=== PATIENT | male | born 1965 | race Two or more races ===

== ENCOUNTER 2021-05-05 19:26 | Emergency (ER) | payer SELFPAY ==
[~2021-05-05] VITALS: Ht 167.6 cm; Wt 80.9 kg
--- NOTE | 2021-05-06 02:56 | PHYS DOC ---
Past Medical History Past Surgical History: No Surgical History (DELL DODSON DO) General Adult EDM: Chief Complaint: COUGH HPI: HPI: 56-year-old male who denies any significant past medical history presents the ED with complaints of fever, cough, sore throat and left-sided abdominal pain. Reports he has been vaccinated for Covid. (DELL DODSON DO) Review of Systems: Review of Systems: Constitutional: Denies confusion or chills. [] Eyes: Denies change in visual acuity. [] HENT: Denies nasal congestion or drooling/speech changes Respiratory: Denies hemoptysis or shortness of breath. [] Cardiovascular: Denies chest pain or edema. [] GI: Denies nausea, vomiting, bloody stools or diarrhea. [] : Denies dysuria or hematuria Musculoskeletal: Denies back pain or joint pain. [] Integument: Denies rash or diaphoresis Neurologic: Denies headache, focal weakness or sensory changes. [] Endocrine: Denies polyuria or polydipsia. [] Lymphatic: Denies swollen glands. [] Psychiatric: Denies depression or anxiety. [] (DELL DODSON DO) Heart Score: C/O Chest Pain: No Risk Factors: Risk Factors: DM, Current or recent (<one month) smoker, HTN, HLP, family history of CAD, obesity. Risk Scores: Score 0 - 3: 2.5% MACE over next 6 weeks - Discharge Home Score 4 - 6: 20.3% MACE over next 6 weeks - Admit for Clinical Observation Score 7 - 10: 72.7% MACE over next 6 weeks - Early Invasive Strategies (DELL DODSON DO) Physical Exam: PE: Constitutional: well nourished, febrile appearing HENT: Normocephalic, atraumatic, no oropharyngeal edema, moist mucous membranes Eyes: EOMI, conjunctiva normal, no discharge. Neck: Normal range of motion, supple, Cardiovascular: S1/2 present, tachycardic initially on arrival Lungs & Thorax: Speaking in full sentences, bilateral equal chest rise, no tachypnea or increased work of breathing Abdomen: soft, cannot reproduce any abdominal tenderness but reports LUQ and left midaxillary/midthoracic pain Skin: Warm, dry, no erythema, no rash. [] Back: No tenderness, no CVA tenderness. [] Extremities: No tenderness, no cyanosis, Neurologic: Alert and oriented X 3, normal motor function, normal sensory function, no focal deficits noted. [] Psychologic: Affect normal, judgement normal, mood normal. [] (DELL DODSON DO) PE: Constitutional: Well developed, well nourished, no acute distress, non-toxic appearance HENT: Normocephalic, atraumatic Eyes: Conjunctiva normal, no discharge Neck: Normal range of motion, supple Lungs & Thorax: No respiratory distress, equal chest rise and fall Abdomen: Soft, no tenderness, no guarding/rebound tenderness/distention Skin: Warm, dry, no erythema, no rash Extremities: No tenderness, ROM intact, no edema Neurologic: Alert and oriented X 3, no focal deficits noted Psychologic: Affect normal, judgment normal (HILLARY YUSUF DO) Current Patient Data: Vital Signs: Vital Signs Date Time Temp Pulse Resp B/P (MAP) Pulse Ox O2 Delivery O2 Flow Rate FiO2 05/06/21 02:05 100.9 83 111/75 (87) 98 Room Air 100.9 (DELL DODSON DO) EKG: EKG: [] (DELL DODSON DO) Radiology/Procedures: Radiology/Procedures: IMAGING REPORT Signed PATIENT: JUDY OCHOA ACCOUNT: [id number] : 1965 LOCATION: ER AGE: 56 SEX: M EXAM STATUS: REG ER ORD. PHYSICIAN: DELL DODSON DO REASON: cough/fever PROCEDURE: CHEST AP ONLY Study: XR CHEST 1V Indication: Cough/fever. Comparison: None. Findings: Mild asymmetric elevation of the right hemidiaphragm. Normal size of the cardiomediastinal silhouette. Unremarkable trino. Increased lung markings and suspected mild infiltrates in addition to atelectasis. There appears be a rounded density projecting over and just below the right second rib. Impression: Possible mild infiltrates which could represent early pneumonia in the appropriate clinical setting. Note is also made of an apparent rounded density projecting over and just below the right second rib (see seth image). Short-term follow-up is indicated to confirm resolution. If this persists CT of the chest would then be needed. Electronically signed by: SERGIO DRAKE MD (05/06/2021 5:32 AM) [facility] DICTATED and SIGNED BY: SERGIO DRAKE MD DATE: 05/06/21 [id number] (DELL DODSON DO) Course & Med Decision Making: Course & Med Decision Making Pertinent Labs and Imaging studies reviewed. (See chart for details) COVID-19 CRITERIA: The patient was evaluated during the global COVID-19 pandemic, and that diagnosis was suspected/considered upon their initial presentation. Their evaluation, treatment and testing was consistent with curre nt guidelines for patients who present with complaints or symptoms that may be related to COVID-19. Concern for atypical pneumonia in the setting of fever and tachycardia. Labs, covid swab and rapid strep pending. Due to shift change patient was signed out to Dr. Yusuf for further evaluation. (DELL DODSON DO) Course & Med Decision Making 0600- Sign out received from Dr. Dodson for patient with concern for possible COVID pneumonia as seen on CXR. Azithromycin previously provided. Labs pending at time of sign out. Labs reviewed. COVID positive. Patient unvaccinated. Patient given symptomatic steroid. Patient also c/o epigastric burning concerning for gastritis. Abdomen nonperitoneal. Pepcid provided. Patient stable for discharge with outpatient follow-up with PCP. Discussed findings and plan with patient, who acknowledges understanding and agreement. COVID-19 CRITERIA: The patient was evaluated during the global COVID-19 pand emic, and that diagnosis was suspected/considered upon their initial presentation. Their evaluation, treatment and testing was consistent with current guidelines for patients who present with complaints or symptoms that may be related to COVID-19. (HILLARY YUSUF DO) Dragon Disclaimer: Dragbryan Disclaimer: This electronic medical record was generated, in whole or in part, using a voice recognition dictation system. (DELL DODSON DO) Departure Departure Impression: Primary Impression: Pneumonia due to COVID-19 virus Additional Impression: Gastritis Qualified Codes: K29.00 - Acute gastritis without bleeding Disposition: HOME / SELF CARE / HOMELESS Condition: STABLE Referrals: NO PCP (PCP) Patient Instructions: Gastritis, Adult, Dact-[id number]-[id number], Viral Syndrome Additional Instructions: Definicin Se le realiz la prueba de deteccin del COVID-19 o se le diagnostic dicha enfermedad. Es jarvis infeccin ocasionada por un nuevo tipo de coronavirus. En la mayora de los casos, el COVID-19 provoca sntomas similares a los del resfriado. En algunas personas, puede ocasionar sntomas ms graves, martin problemas respiratorios. No existe un tratamiento para el virus COVID-19. El cuerpo elimina la infeccin con el tiempo. El cuidado personal ayuda a aliviar el malestar. Pasos que debe seguir 1. Cuidados personales Descanse cuando sea necesario. Los hbitos saludables pueden ayudarlo a sentirse mejor. Algunas medidas para lograr cambios incluyen lo siguiente: - Elija alimentos saludables, martin frutas y verduras. Magda abundante cantidad de agua carlton todo el da. - Duerma myesha por la noche. - Si fuma, intente no hacerlo. [employer] ayudar a mejorar la respiracin. - Evite el alcohol. 2. Mantenga sanos a los dems El virus puede contagiarse a otras personas. Cada vez que estornuda o tose, se liberan gotitas. Las gotitas pueden entrar en la boca, la nariz o los ojos de las personas que se encuentran cerca de usted y ocasionar la infeccin. Para reducir las prob abilidades de contagiar el virus COVID-19 a otros, tenga en cuenta lo siguiente: - Qudese en casa el tiempo que el mdico se lo indique. Es posible que deba quedarse en casa hasta que la enfermedad desaparezca. Salga nicamente para recibir atencin mdica o en chan de urgencia. - Evite las reas pblicas, los eventos o el transporte pblico. No reanude las actividades laborales o escolares hasta que el mdico lo autorice. - Llame previamente si necesita asistir a un centro mdico. Avise que es pos ible que haya contrado COVID-19. [employer] ayudar a que le indiquen adonde debe dirigirse. Kassie pueden pedirle que use jarvis mscara facial cuando vaya al consultorio. Si llama a los servicios de asistencia mdica de urgencias, avseles que es posible que haya contrado COVID-19. Mientras est en casa: - Evite el contacto directo con otras personas. Mantngase a jarvis distancia aproximada de 2 metros. Si es posible, pasen la mayor parte del tiempo en ruffin separadas. - Use jarvis mscara facial si estar en contacto directo con otras personas, por ejemplo, si compartir jarvis habitacin o un vehculo. - Pida a alguien que limpie las superficies comunes de la casa. Limpie picaportes, mesadas y lavamanos con limpiadores domsticos todos los roa. - Al toser o estornudar, cbrase con un pauelo de papel. Despus de usarlo, deschelo de inmediato. Si no tiene un pauelo de papel, tosa o estornude en el pliegue del codo. - Lvese las johnathan con frecuencia. Lvese las johnathan despus de estornudar o toser. Lvese con agua y jabn carlton, al menos, 20 segundos. Si no dispone de agua y jabn, use un limpiador de johnathan a base de alcohol. - No cocine para otros. Evite compartir objetos personales, martin tenedores, cucharas o cepillos de dientes. - Mientras est enfermo, evite el contacto directo con las mascotas. No hay indicios de si el virus se transmite a las mascotas. Esta es jarvis medida de seguridad que debe tenerse en cuenta hasta que se sepa ms acerca de sarah virus. El aislamiento puede ser frustrante. La interaccin social puede ayudar. Mantngase en contacto con amigos y familiares por telfono u otros medios tecnolgicos. Puede interactuar con otras personas en el [facility], leann mantenga jarvis distancia coreas de aproximadamente 2 metros. Seguimiento Las pruebas para confirmar la presencia del COVID-19 pueden demorar algunos roa. Es posible que deba seguir los pasos mencionados anteriormente hasta que estn los resultados de las pruebas. Lo llamarn del consultorio mdico para saber si reyes habido algn cambio en rojo romain. Kassie le avisarn cuando pueda volver a estar cerca de otras personas. Problemas a los que debe estar atento Comunquese con el mdico si no se recupera segn lo previsto o si tiene problemas martin los siguientes: - Dificultad para respirar - Dolor de pecho - Empeoramiento de los sntomas Si zander que tiene jarvis urgencia, llame a los servicios de asistencia mdica de urgencias de inmediato. As taken from [employer] Famotidine (PEPCID) 20 Mg Tablet 20 MG PO BID for 20 Days, #40 TAB Prov: HILLARY YUSUF DO 05/06/21 Azithromycin (ZITHROMAX) 250 Mg Tablet 1 TAB PO DAILY for COVID-19, #4 TAB Prov: HILLARY YUSUF DO 05/06/21 COVID-19 Assessment: COVID-19 Patient Risks: Age 65 or older: No Sign of co-morbidity: No Exp to person + for COVID: No Exp to PUI: No Travel from affected area: No Lower respiratory symptoms: Yes Fever: Yes Other: No (HILLARY YUSUF DO) PPE Use: Full PPE with N95 mask or PAPR: Yes (HILLARY YUSUF DO) DELL DODSON DO May 06, 2021 02:55 HILLARY YUSUF DO May 06, 2021 07:20
--- NOTE | 2021-05-06 05:35 | RAD ---
Study: XR CHEST 1V Indication: Cough/fever. Comparison: None. Findings: Mild asymmetric elevation of the right hemidiaphragm. Normal size of the cardiomediastinal silhouette . Unremarkable trino. Increased lung markings and suspected mild infiltrates in addition to atelectasis. There appears be a rounded density projecting over and just below the right second rib. Impression: Possible mild infiltrates which could represent early pneumonia in the appropriate clinical setting. Note is also made of an apparent rounded density projecting over and just below the right second rib (see seth image). Short-term follow-up is indicated to confirm resolution. If this persists CT of the chest would then be needed. Electronically signed by: SERGIO DRAKE MD (05/06/2021 5:32 AM) [facility]
[2021-05-06 06:00] VITALS: BP 106/72
[2021-05-06 06:28] LABS: BASO % 1 % (0-3); EOS % 0 % (0-3); HEMATOCRIT 45.6 % (39.0-53.0); LYMPH # 1.2 x10^3/uL (1.0-4.8); LYMPH % 23 % (24-48); MEAN CORPUSCULAR HEMOGLOBIN 31 pg (25-35); MEAN CORPUSCULAR HGB CONC 35 g/dL (31-37); MEAN CORPUSCULAR VOLUME 89 fL (79-100); MONO # 0.7 x10^3/uL (0.0-1.1); MONO % 14 % (0-9); NEUT # 3.1 x10^3/uL (1.8-7.7); NEUT % 62 % (31-73); PLATELET COUNT 140 x10^3/uL (140-400); RED BLOOD COUNT 5.12 x10^6/uL (4.30-5.70); RED CELL DISTRIBUTION WIDTH 13.7 % (11.5-14.5)
[2021-05-06 06:41] LABS: CALCIUM 8.8 mg/dL (8.5-10.1); GFR 77.9; POTASSIUM 3.9 mmol/L (3.5-5.1)
[2021-05-06] MEDS ORDERED: ACETAMINOPHEN 325 MG TABLET. PO ONE (06:45)
[2021-05-06] MEDS ORDERED: AZITHROMYCIN 250 MG TABLET. PO ONE (06:45)
[2021-05-06 06:48] LABS: ALBUMIN 3.6 g/dL (3.4-5.0); ALBUMIN/GLOBULIN RATIO 0.9 (1.0-1.7); MAGNESIUM 2.3 mg/dL (1.8-2.4); TOTAL BILIRUBIN 0.4 mg/dL (0.2-1.0); TOTAL PROTEIN 7.8 g/dL (6.4-8.2)
[2021-05-06] MEDS ORDERED: FAMO-63 PO (07:17)
[2021-05-06] MEDS ORDERED: AZIT250T PO (07:17)
[2021-05-06] MEDS ORDERED: FAMOTIDINE 20 MG/2 ML VIAL IVP ONE (07:30)
[2021-05-06] MEDS ORDERED: DEXAMETHASONE SOD PHOS 4 MG/ML VIAL IVP ONE (07:30)
== END 2021-05-06 07:44 | disposition home or self-care (01) ==
LOC: ER 19:26
DX: U07.1 COVID-19 (principal); J12.82 Pneumonia due to coronavirus disease 2019; K29.00 Acute gastritis without bleeding
CPT/HCPCS: 36415; 71045; 80053; 83690; 83735; 85025; 87070; 87426; 87880; 96374; 96375; 99285; G0480; J1100; J3490